=== PATIENT | male | born 1965 | race Caucasian/White ===

== ENCOUNTER 2022-09-23 11:05 | Emergency (ER) | payer MEDICAID ==
[~2022-09-23] VITALS: Ht 157.5 cm; Wt 65.3 kg
[2022-09-23 11:10] VITALS: BP_SYST 115; PULSE 100; RESP 18; TEMP 98.3; O2SAT 98
--- NOTE | 2022-09-23 11:28 | NUR ---
Patient triaged and placed in waiting room. VSS and patient appears in no acute distress at this time. Accompanied by self , awaiting available bed, and MD notified of need for MSE.
--- NOTE | 2022-09-23 11:30 | NUR ---
Pt brought by Nilam PRATT[facility]Ox[facility], pt presents to ER with bilateral foot pain after walking several miles, pt is homeless, VSS, skin pink and warm, cap refill <3, respirations even and unlabored.
--- NOTE | 2022-09-23 13:40 | NUR ---
Dr Lara evaluating patient at bedside
[2022-09-23] MEDS ORDERED: NAPR-688 PO (14:24)
[2022-09-23] MEDS ORDERED: ACETAMINOPHEN 500 MG TABLET PO ONE (14:30)
[2022-09-23 14:55] VITALS: BP_SYST 115; PULSE 100; RESP 18; TEMP 98.3; O2SAT 98
--- NOTE | 2022-09-23 14:56 | NUR ---
Patient given written and verbal discharge instructions and verbalizes understanding. ER MD discussed with patient the results and treatment provided. Patient in stable condition. ID arm band removed. Rx of Naproxen given. Patient educated on pain management and to follow up with PMD. Pain Scale 3/10 . Opportunity for questions provided and answered. Medication side effect fact sheet provided.
== END 2022-09-23 14:56 | disposition home or self-care (01) ==
LOC: SED 11:05
DX: M79.671 Pain in right foot (principal); M79.672 Pain in left foot; Z79.899 Other long term (current) drug therapy
CPT/HCPCS: 99283